=== PATIENT | female | born 1985 | race Caucasian/White ===

== ENCOUNTER 2017-02-20 13:47 | Outpatient (RCR) | payer OTHER ==
[~2017-02-20 13:47] MED LIST: LORTAB 5/500 501 TAB PO
== END 2017-03-07 11:19 ==
LOC: WSOH 13:47
DX: S61.012A Laceration without foreign body of left thumb without damage to nail, initial encounter (principal); W26.0XXA Contact with knife, initial encounter; Y99.0 Civilian activity done for income or pay